=== PATIENT | female | born 2000 | race Caucasian/White ===

== ENCOUNTER 2019-07-29 11:37 | Day surgery (SDC) | payer OTHER ==
[~2019-07-29 11:37] MED LIST: ACETAMINOPHEN 1,000 MG/100 ML BTL IVPB ONE; CLINDAMYCIN 600MG/50ML PREMIX 600 MG/50 ML BAG IVPB ONE
[2019-07-29] MEDS ORDERED: DEXAMETHASONE 4 MG/ML 1ML VIAL IVP ONE (11:38)
[2019-07-29] MEDS ORDERED: MIDAZOLAM HCL 2MG/2ML VIAL IV ONE (11:38)
[2019-07-29] MEDS ORDERED: KETOROLAC 30 MG/ML VIAL IVP ONE (11:38)
[2019-07-29] MEDS ORDERED: CLINDAMYCIN 600MG/50ML PREMIX 600 MG/50 ML BAG IVPB ONE (11:38)
[2019-07-29] MEDS ORDERED: FENTANYL CITRATE/PF (PACU) 50 MCG/ML VIAL IV ONE (11:38)
[2019-07-29] MEDS ORDERED: ONDANSETRON HCL IV 4 MG/2 ML VIAL IVP ONE (11:38)
[2019-07-29] MEDS ORDERED: SEVOFLURANE 250 ML INH ONE (11:38)
[2019-07-29] MEDS ORDERED: PROPOFOL 10 MG/ML VIAL IV ONE (11:38)
[2019-07-29] MEDS ORDERED: LIDOCAINE 2% MDV (20MG/ML) 20ML VIAL IV ONE (11:38)
[2019-07-29 12:01] LABS: HEMATOCRIT 38.4 % (35.0-47.0); HEMOGLOBIN 11.7 gm/dl (11.6-16.0)
[2019-07-29] MEDS ORDERED: RINGERS SOLUTION,LACTATED 1,000 ML IV ONE ×2 (12:25→15:43)
[2019-07-29] MEDS ORDERED: BUPIVACAINE 0.5% W/EPI MPF 30 ML VIAL SQ ONE (15:44)
[2019-07-29] MEDS ORDERED: VANCOMYCIN HCL 1 GM VIAL IU ONE (15:54)
[2019-07-29] MEDS ORDERED: BUPIVACAINE LIPOSOME/PF 133MG/10ML VIAL SQ ONE (16:34)
[2019-07-29] MEDS ORDERED: FENTANYL PF 100MCG/2ML VIAL IVP ONE (17:39)
[2019-07-29] MEDS ORDERED: HYDROCODONE/APAP 7.5/325MG TABLET PO ONE (18:09)
--- NOTE | 2019-07-30 13:35 | Operative Note ---
DATE OF SURGERY: 07/29/2019 PREOPERATIVE DIAGNOSIS: DISPLACED INTRAARTICULAR LEFT INTRACONDYLAR SUPRACONDYLAR ELBOW FRACTURE. POSTOPERATIVE DIAGNOSIS: DISPLACED INTRAARTICULAR LEFT INTRACONDYLAR SUPRACONDYLAR ELBOW FRACTURE. OPERATION: OPEN REDUCTION INTERNAL FIXATION. SURGEON: Zev Sosa M.D. ANESTHESIA: General endotracheal. COMPLICATIONS: None. ESTIMATED BLOOD LOSS: Minimal. OPERATIVE FINDINGS: Displaced intraarticular fracture in the trochlea. COMPONENTS PLACED: 7 small [employer] locking lateral pre-contoured plate with 6 locking screws. 1 gram of Vancomycin cement powder. INDICATION: A 19-year-old female who fell a few days ago who sustained a displaced intraarticular fracture and she is scheduled for the procedure above. I explained the risks and benefits thoroughly in detail for her diagnosis and procedures including, but not limited to infection, nerve injury, vessel injury, persistent pain, numbness and tingling in her elbow, periprosthetic fracture, need for resection, arthroplasty components become infected or loosen, nerve injury, vessel injury, blood clot, need for further procedures, non-union, malunion, hardware failure, and all of her questions were answered. Rehab course was outlined. She agreed to proceed. PROCEDURE: The patient was brought to the Operating Room and placed in the supine position on the operating room table and general endotracheal anesthesia was induced. The left upper extremity and arm are prepped and draped in the sterile fashion. Prepped again with ChloraPrep after it was draped. Intraoperative timeout was performed. Next, we performed a lateral approach to the elbow. The skin and subcutaneous tissues were taken down after we injected 0.5% Marcaine with epi and found the lateral muscular septum and dissected the biceps and muscle off the lateral muscular septum, dissected directly onto bone, on the bone distal to proximal and opened up to perform an arthrotomy distally. We released the annular ligament laterally and opened up their entire radial ulnar and thenar ulnar joint. We identified the intraarticular fracture directly in the central portion of the trochlea and there was a fracture and some impaction of the radial capitellum laterally as well . We disimpacted that and performed manual reduction of the fragments, brought in her plate, we bent it to contour to the lateral distal humerus. Holding compression on the intraarticular portion which was visualized anteriorly. It was directly in line and the articular surface was congruent. We then tacked the plate with a plate tack in the metaphyseal area and then drilled and inserted the three locking screws distally parallel to the joint surface. Under direct visualization on mini-C arm verifying that they we are not penetrating the intraarticular and they are in good orientation. For the first one we used a compression screw to compress the fracture and trochlea. We then changed it out later to a locking screw again. Took images in AP and lateral positions showing anti-reduction, we then placed three other additional screws proximally now with drilling and measuring off the drill guide inserted into the 3-5 screws in usual fashion, one was compression screw for the medial column fragment. Following images taken, AP and lateral positions and anatomic reduction. Copiously irrigated with saline two liters and careful electrocautery. Next, we then placed Vancomycin powder over the fracture site. Next we closed the fascia and lateral annular ligament with [id number] Vicryl securely, closed the skin deep with 2-0 Vicryl and then a running 2-0 Quill suture. Injected 0.5% Marcaine with epi, Exparel, and she received total IV. Sterile dressing applied, López wrap and sling. The patient tolerated the procedure well. No intraoperative complication. Sponge, needle and blades are correct. Recovery stable. She will be discharged as an outpatient. Follow-up in two weeks. JOB NUMBER: [id number] MTDD
== END 2019-07-29 18:33 | disposition home or self-care (01) ==
LOC: SUR 11:37
PROVIDERS: ATTEND Orthopaedic Surgery
DX: S42.492A Other displaced fracture of lower end of left humerus, initial encounter for closed fracture (principal)
CPT/HCPCS: 81025; 85014; 85018; C1776; C9290; J1885; J2405; J7120